=== PATIENT | female | born 1970 | race Two or more races ===

== ENCOUNTER 2023-02-01 08:15 | Outpatient (CLI) | payer OTHER | END 2023-02-01 08:23 | disposition home or self-care (01) | LOC: RX STUDY 08:15 | PROVIDERS: ATTEND Internal Medicine Gastroenterology | DX: K21.9 Gastro-esophageal reflux disease without esophagitis (principal); R13.10 Dysphagia, unspecified; R10.13 Epigastric pain ==

== ENCOUNTER 2023-02-07 07:30 | Outpatient (CLI) | payer OTHER | END 2023-02-07 07:37 | disposition home or self-care (01) | LOC: NUCLEAR 07:30 | DX: K31.84 Gastroparesis (principal) ==